=== PATIENT | female | born 1960 | race Caucasian/White ===

== ENCOUNTER 2016-12-21 04:03 | Emergency (ER) | payer OTHER ==
[2016-12-21 04:38] LABS: BASOPHIL 0.6 % (0-2); EOSINOPHIL 0.8 % (0-5); HCT 43.2 % (37.0-47.0); HGB 15.1 g/dl (12.5-16.0); LYMPHOCYTE 35.3 % (15-48); MCV 82.9 fL (78.0-100.0); MONOCYTE 7.4 % (0-12); MPV 13.1 fL (6.0-9.5); NEUTROPHIL 55.9 % (41-80); PLT 161 K/uL (150-400); RBC 5.21 M/uL (4.20-5.40); RDW 12.3 % (11.5-14.0); WBC 4.7 K/uL (4.0-10.5)
[2016-12-21 04:43] LABS: INR 0.94 (0.9-1.2); PROTHROMBIN TIME 12.2 SECONDS (11.7-14.0)
[2016-12-21 04:44] LABS: PTT 27.4 SECONDS (23.2-31.4)
[2016-12-21 04:45] LABS: D-DIMER 0.65 ug/mLFEU (0.00-0.41)
[2016-12-21 04:48] LABS: ALBUMIN 4.6 g/dL (3.5-5.0); CREATININE 0.8 mg/dL (0.5-1.0); GLOBULIN (CALCULATION) 2.4 g/dL (2.2-4.2); MAGNESIUM 2.34 mg/dL (1.40-2.10); POTASSIUM 3.3 mmol/L (3.5-5.1)
[2016-12-21 04:50] LABS: MYOGLOBIN 21 ng/mL (26-65); PRO-BNP 115 pg/mL (0-125); TROPONIN T < 0.010 ng/mL
== END 2016-12-21 09:11 | disposition other institution (70) ==
LOC: FER 04:03
PROVIDERS: Emergency Medicine
DX: I62.9 Nontraumatic intracranial hemorrhage, unspecified (principal); R20.8 Other disturbances of skin sensation; R29.701 NIHSS score 1; K21.9 Gastro-esophageal reflux disease without esophagitis; Z88.0 Allergy status to penicillin; Z79.899 Other long term (current) drug therapy
CPT/HCPCS: 36415; 70450; 71010; 71275; 80053; 82550; 82553; 83735; 83874; 83880; 84484; 85025; 85379; 85610; 85730; 93005; Q9967

== ENCOUNTER 2021-07-06 10:07 | Emergency (ER) | payer OTHER ==
[~2021-07-06 10:07] MED LIST: NORCO 5-325 TA1 EACH PO; ZOFRAN4 MG PO
[2021-07-06 10:50] LABS: BASOPHIL 0.7 % (0-2); EOSINOPHIL 0.5 % (0-5); HCT 42.1 % (37.0-47.0); HGB 14.2 g/dl (12.5-16.0); LYMPHOCYTE 21.2 % (15-48); MCH 29.4 pg (25.0-31.0); MCHC 33.7 g/dL (32.0-36.0); MCV 87.2 fL (78.0-100.0); MONOCYTE 7.3 % (0-12); MPV 13.3 fL (6.0-9.5); NEUTROPHIL 69.9 % (41-80); NRBC 0; PLT 112 K/uL (150-400); RBC 4.83 M/uL (4.20-5.40); RDW 12.2 % (11.5-14.0); WBC 5.6 K/uL (4.0-10.5)
[2021-07-06 11:15] LABS: ALBUMIN 3.9 g/dL (3.4-5.0); BILIRUBIN - TOTAL 1.5 mg/dL (0.2-1.0); BUN/CREAT RATIO (CALC) 29.3 RATIO; CREATININE 0.82 mg/dL (0.51-0.95); GLOBULIN (CALCULATION) 3.4 g/dL; POTASSIUM 3.6 mmol/L (3.5-5.1); TOTAL PROTEIN 7.3 g/dL (6.4-8.2)
[2021-07-06 11:24] LABS: INR 0.95 (0.9-1.2); PROTHROMBIN TIME 12.1 SECONDS (11.8-13.4); PTT 27.3 SECONDS (24.4-34.7)
[2021-07-06] MEDS ORDERED: NITROGLYCERIN0.4 MG SL (14:10)
[2021-07-06] MEDS ORDERED: MYLANTA COAT-C355 ML PO (14:21)
== END 2021-07-06 14:45 | disposition home or self-care (01) ==
LOC: FER 10:07
PROVIDERS: Internal Medicine
DX: K21.9 Gastro-esophageal reflux disease without esophagitis (principal); R07.89 Other chest pain; I10 Essential (primary) hypertension; Z88.0 Allergy status to penicillin
CPT/HCPCS: 36415; 71045; 80053; 84443; 84484; 85025; 85610; 85730; 93005